=== PATIENT | female | born 1940 | race Caucasian/White ===

== ENCOUNTER 2023-10-10 19:41 | Emergency (ER) | payer MEDICARE, OTHER, SELFPAY ==
--- NOTE | ~2023-10-10 | XR_ITS ---
EXAM: XR knee LT min 4V DATE: 10/10/2023 20:06 HISTORY: TWISTING INJURY, DISTAL ANT LATERAL PAIN . COMPARISON: None available. FINDINGS: Decreased mineralization. No fracture or dislocation. No lytic or blastic lesion. Tricompa rtmental arthritic change, moderate in the medial compartment, with chondrocalcinosis. Quadriceps ent hesopathy No erosion or periosteal change. Vascular calcification. IMPRESSION: No acute osseous finding in the left knee. Reviewed, dictated and finalized at location [facility]
[2023-10-10 19:52] VITALS: BP 180/68; PULSE 72; RESP 16; TEMP 36.9; O2SAT 97
--- NOTE | 2023-10-10 20:22 | ED.GENADULT ---
HPI - General Adult General Chief complaint: Extremity Injury, Lower Stated complaint: Left knee / muhammad injury Time Seen by Provider: 10/10/23 20:22 Source: patient, family, RN notes reviewed and old records reviewed Mode of arrival: wheelchair Limitations: no limitations History of Present Illness HPI narrative: 83 year old female accompanied by family with complaints of pain to her left upper lateral lower leg after she was trying to lift her left leg to step up on a stoop and her knee gave away and she thinks she twisted her left knee. Patient denies falling but has increased pain to her left lateral leg below knee region since when she attempts to apply weight on her left leg. Patient took some Ibuprofen before arrival to clinic, no obvious deformity swelling or bruising noted.Patient had been at family gathering when this occurred several family members with her in clinic. MD complaint: left leg below knee laterally Onset (ago): hour(s) (within past few hours prior to arrival) Location: left and lower extremity (lateral below knee) Severity scale (1-10): 3 Exacerbating factors: other (weight bearing) Treatments prior to arrival: NSAID Related Data Home Medications Medication Instructions Recorded Confirmed levothyroxine 75 mcg tablet mcg 10/10/23 losartan 50 mg-hydrochlorothiazide tablet 10/10/23 12.5 mg tablet Allergies Allergy/AdvReac Type Severity Reaction Status Date / Time No Known Allergies Allergy Verified 10/10/23 20:13 Review of Systems Review of Systems: CONSTITUTIONAL: Denies fever, chills, or sweats. EYES: Denies visual changes, redness, or discharge. ENT: Denies rhinorrhea, congestion, sore throat, or otalgia. CARDIOVASCULAR: Denies chest pain, palpitations, or edema. RESPIRATORY: Denies cough or dyspnea. GASTROINTESTINAL: Denies abdominal pain, nausea, vomiting, or diarrhea. GENITOURINARY: Denies dysuria or hematuria. SKIN: Denies rash or itching. MUSCULOSKELETAL: Denies back pain,left lower leg pain below knee pain, or myalgia. NEUROLOGIC: Denies headache, numbness, or weakness. PSYCHIATRIC: Denies anxiety or depression. All systems reviewed & are unremarkable except as noted in HPI and below PMFSH Past Medical History Medical History (Updated 10/13/23 @ 00:01 by Alek Benavides) Hypertension Hypothyroidism Social History Social History (Updated 10/12/23 @ 16:38 by Heydi Day NP) Alcohol intake: current Alcohol use details: rare social Substance use type: does not use Occupation/Education: retired Gender identity (if verbalized by the patient): Female Comments At time of signature, agree with nursing past medical, surgical, social and family history. There is no relevant family history pertinent to the presenting complaint Exam Narrative: GENERAL: Well-appearing, well-nourished, and in no acute distress. HEAD: Normocephalic, atraumatic. EYES: PERRLA and EOMI. ENT: Nares clear, no rhinorrhea or epistaxis. Mucous membranes moist. NECK: Supple.no lymphadenopathy CHEST: Clear to auscultation. No respiratory distress.SAO2 97% on room air HEART: Regular rate and rhythm. No murmur heard. Normal peripheral pulses. ABDOMEN: Soft, nontender, nondistended, normal active bowel sounds. EXTREMITIES: Normal range of motion. No edema.reports painful weight bearing to left lateral lower leg below knee,no bruising or swelling noted, strong pedal pulse left leg,no obvious deformity SKIN: Warm, dry, no rash. NEURO: No focal deficits. Alert and oriented x3. Course Course Emergency Course: Patient is aware of diagnosis, understands and agrees to treatment plan.? Anticipatory guidance given.? Patient agrees to follow-up as directed and is aware of reasons to seek care at the emergency department. Portions of this record may have been created with voice recognition software Level of Care: Express Care Visit Vital Signs Vital signs: Vital Signs Temperature 36.9 C
== END 2023-10-10 20:40 | disposition home or self-care (01) ==
PROVIDERS: Emergency Provider Registered Nurse; PCP Internal Medicine Geriatric Medicine
DX: M79.662 Pain in left lower leg (principal); M17.12 Unilateral primary osteoarthritis, left knee; I10 Essential (primary) hypertension; E03.9 Hypothyroidism, unspecified
CPT/HCPCS: 73564; 99213; G0463